=== PATIENT | female | born 1945 | race Caucasian/White ===

== ENCOUNTER 2021-10-06 22:35 | Emergency (ER) | payer OTHER ==
[~2021-10-06 22:35] MED LIST: DILANTIN30 MG PO; DILANTIN50 MG PO
[2021-10-06 23:46] LABS: BASOPHIL 0.6 % (0-2); EOSINOPHIL 2.1 % (0-7); HGB 14.7 g/dl (12.5-16.0); LYMPHOCYTE 11.7 % (15-48); MCHC 32.7 g/dL (32.0-36.0); MONOCYTE 11.7 % (0-12); MPV 11.1 fL (6.0-9.5); NEUTROPHIL 73.7 % (41-80); NRBC 0; PLT 103 K/uL (150-400); RBC 4.59 M/uL (4.20-5.40); RDW 12.6 % (11.5-14.0); WBC 5.3 K/uL (4.0-10.5)
[2021-10-07 00:18] LABS: CORONAVIRUS 2019 SARS-COV-2 NEGATIVE (NEGATIVE); INFLUENZA A NAA NEGATIVE (NEGATIVE)
[2021-10-07 00:51] LABS: BUN/CREAT RATIO (CALC) 42.9 RATIO; CREATININE 0.77 mg/dL (0.51-0.95); POTASSIUM 3.8 mmol/L (3.5-5.1)
[2021-10-07] MEDS ORDERED: AZITHROMYCIN250 MG PO (01:46)
[2021-10-07] MEDS ORDERED: FLONASE ALLER15.8 ML (01:46)
[2021-10-07] MEDS ORDERED: ZYRTEC10 MG PO (01:46)
== END 2021-10-07 02:30 | disposition home or self-care (01) ==
LOC: FER 22:35
PROVIDERS: Internal Medicine
DX: J06.9 Acute upper respiratory infection, unspecified (principal); Z20.822 Contact with and (suspected) exposure to COVID-19; Z79.82 Long term (current) use of aspirin
CPT/HCPCS: 36415; 71045; 80048; 83880; 84145; 84484; 85025; 93005; 94640; 94664; 99282; U0002